=== PATIENT | male | born 1950 | race African-American/Black ===

== ENCOUNTER → 2020-07-05 | Outpatient (CLI) | payer MEDICARE, MEDICAID ==
[~2020-07-05] MED LIST: AMLO5TAB4 PO; APIX5TAB MT; ASPI-1160 PO; ATOR20TA65 PO; CLOP75TA33 PO; HYDR25TA PO; LISI40TA13 PO; LOSA100T32 PO; METO-385 PO; SIMV-43 PO; SPIR25TA PO
== END | disposition home or self-care (01) ==
LOC: LAB 08:57
PROVIDERS: ATTEND Specialist
DX: Z01.812 Encounter for preprocedural laboratory examination (principal); R05 Cough; Z20.822 Contact with and (suspected) exposure to COVID-19
CPT/HCPCS: 87426

== ENCOUNTER 2020-07-06 06:23 | Inpatient (IN) | payer MEDICARE, MEDICAID ==
[~2020-07-06] VITALS: Ht 182.9 cm; Wt 99.3 kg
[~2020-07-06 06:23] MED LIST changes: -APIX5TAB MT
[2020-07-06] MEDS ORDERED: ASPIRIN/SOD BICARB/CITRIC ACID 324MG TAB EFF ONE (07:51)
[2020-07-06] MEDS ORDERED: IODIXANOL 320MG/ML 100 ML BOTTLE IV ONE (07:52)
[2020-07-06] MEDS ORDERED: LIDOCAINE HCL 1% 20ML VIAL (Pyxis) INJ ONE (07:52)
[2020-07-06] MEDS ORDERED: FENTANYL CITRATE/PF 50MCG/ML 2ML VIAL ONE (07:54)
[2020-07-06] MEDS ORDERED: MIDAZOLAM HCL 2 MG/2 ML VIAL ONE (07:54)
[2020-07-06 08:05] LABS: HEMATOCRIT 38.9 % (42.0-52.0); HEMOGLOBIN 13.2 g/dL (14.0-18.0); MEAN CORPUSCULAR HEMOGLOBIN 30.8 pg (28.0-32.0); MEAN CORPUSCULAR VOLUME 90.7 fL (80.0-94.0); PLATELET 248 x1000/uL (130-400); RED BLOOD CELL COUNT 4.29 mill/uL (4.7-6.1); RED CELL DISTRIBUTION WIDTH 14.5 % (11.6-14.6)
[2020-07-06 08:10] LABS: CHLORIDE 113 mEq/L (98-107)
[2020-07-06 08:16] LABS: PARTIAL THROMBOPLASTIN TIME 29.4 sec (23.4-31.0); PROTHROMBIN TIME 10.4 sec (9.6-11.0)
[2020-07-06] MEDS ORDERED: HEPARIN SODIUM 1,000 UNIT/1ML VIAL IV ONE (08:30)
[2020-07-06] MEDS ORDERED: APIX5TAB MT (08:37)
[2020-07-06] MEDS ORDERED: NITROGLYCERIN 50MCG/ML 10ML VIAL (CATH LAB) IV ONE (09:07)
[2020-07-06] MEDS ORDERED: NICARDIPINE 100MCG/ML 10ML VIAL (CATH LAB) IV ONE (09:07)
[2020-07-06] MEDS ORDERED: IOHEXOL-300 100 ML BOTTLE ONE (09:30)
[2020-07-06] MEDS ORDERED: CLOPIDOGREL 75MG TABLET ONE (09:55)
[2020-07-06] MEDS ORDERED: CLOPIDOGREL 75MG TABLET PO SCH (10:00)
[2020-07-06] MEDS ORDERED: ONDANSETRON HCL 4MG/2ML INJ IV PRN (10:00)
[2020-07-06] MEDS ORDERED: SODIUM CHLORIDE 0.45% 1,000 ML IV ONE (10:00)
[2020-07-06] MEDS ORDERED: MORPHINE SULFATE 2 MG/ML CPJ (NOT FOR IM USE) IV PRN (10:00)
[2020-07-06] MEDS ORDERED: ACETAMINOPHEN 325MG TABLET PO PRN (10:00)
[2020-07-06] MEDS ORDERED: ATROPINE SULFATE 1MG/10ML SYR IV PRN (10:00)
[2020-07-06] MEDS ORDERED: MIDAZOLAM HCL 5 MG/5 ML VIAL ONE (10:21)
[2020-07-06] MEDS ORDERED: FENTANYL CITRATE/PF 50MCG/ML 5ML VIAL ONE (10:21)
[2020-07-06 15:30] VITALS: BP 148/75
[2020-07-06 17:41] VITALS: BP 148/75
[2020-07-06 18:00] VITALS: BP 125/94
[2020-07-06 20:00] VITALS: BP 156/46
[2020-07-06] MEDS: METOPROLOL TARTRATE 25MG TABLET PO SCH (20:41)
[2020-07-06] MEDS ORDERED: ATORVASTATIN CALCIUM 20MG TABLET PO SCH (21:00)
[2020-07-06 21:22] VITALS: BP 131/61
[2020-07-06 22:00] VITALS: BP 121/75
[2020-07-07] VITALS: BP 131/93
[2020-07-07 02:00] VITALS: BP 133/70
[2020-07-07 04:00] VITALS: BP 123/79
[2020-07-07 06:00] VITALS: BP 121/84
[2020-07-07 06:14] LABS: BASOPHILS % 0.5 % (0.0-2.0); EOSINOPHILS % 9.3 % (0.0-5.0); HEMOGLOBIN. 12.9 g/dL (14.0-18.0); LYMPHOCYTES % 23.1 % (20.0-50.0); MEAN CORPUSCULAR HEMOGLOBIN 30.6 pg (28.0-32.0); MEAN CORPUSCULAR VOLUME 90.4 fL (80.0-94.0); MEAN PLATELET VOLUME 7.9 fl (7.4-10.4); MONOCYTES % 6.1 % (2.0-8.0); PLATELET 230 x1000/uL (130-400); RED CELL DISTRIBUTION WIDTH 14.5 % (11.6-14.6)
[2020-07-07 06:53] LABS: CHLORIDE 114 mEq/L (98-107)
[2020-07-07 08:00] VITALS: BP 157/102
[2020-07-07] MEDS: METOPROLOL TARTRATE 25MG TABLET PO SCH (08:30)
[2020-07-07] MEDS ORDERED: CLOPIDOGREL 75MG TABLET PO SCH (09:00)
[2020-07-07] MEDS ORDERED: POTASSIUM CHLORIDE 20MEQ TABLET SR PO NR (09:00)
[2020-07-07] MEDS ORDERED: MAGNESIUM OXIDE 400MG TABLET PO NR (09:00)
[2020-07-07 09:59] VITALS: BP 139/97
== END 2020-07-07 12:00 | disposition home or self-care (01) | DRG 247 ==
LOC: CCL 06:23 → 3WST 17:30
PROVIDERS: ADMIT Specialist; ATTEND Specialist
PROC: 4A023N7 Measurement of Cardiac Sampling and Pressure, Left Heart, Percutaneous Approach (ICD-10-PCS; principal; 2020-07-06)
PROC: 027034Z Dilation of Coronary Artery, One Artery with Drug-eluting Intraluminal Device, Percutaneous Approach (ICD-10-PCS; 2020-07-06)
PROC: B2111ZZ Fluoroscopy of Multiple Coronary Arteries using Low Osmolar Contrast (ICD-10-PCS; 2020-07-06)
DX: I25.10 Atherosclerotic heart disease of native coronary artery without angina pectoris (principal); Q25.0 Patent ductus arteriosus; E78.5 Hyperlipidemia, unspecified; F17.200 Nicotine dependence, unspecified, uncomplicated; I48.91 Unspecified atrial fibrillation; Z79.01 Long term (current) use of anticoagulants; Z79.82 Long term (current) use of aspirin; Z79.899 Other long term (current) drug therapy; Z86.73 Personal history of transient ischemic attack (TIA), and cerebral infarction without residual deficits; Z95.0 Presence of cardiac pacemaker
CPT/HCPCS: 36415; 80048; 85025; 85027; 85347; 92928; 93005; 93458; C1769; C1874; C1887; C1893; J1644; J2250; J2270; J3010; J3490; Q9967